=== PATIENT | female | born 1970 | race Asian ===

== ENCOUNTER 2024-11-28 19:28 | Inpatient (IN) | payer OTHER, SELFPAY ==
[2024-11-28 16:06] VITALS: BP 190/98
[2024-11-28 16:39] LABS: ALT (SGPT) 24 U/L (0-35); AST (SGOT) 25 U/L (14-36); Albumin 4.2 g/dl (3.5-5.0); Alkaline Phosphatase 100 U/L (38-126); Blood Urea Nitrogen 10 mg/dl (7-17); Calcium 8.9 mg/dl (8.4-10.2); Carbon Dioxide 24 mmol/L (22-30); Chloride 102 mmol/L (98-107); Glucose 122 mg/dl (70-99); Hematocrit 50.3 % (37.0-47.0); Hemoglobin 14.4 g/dL (12.0-16.0); Lipase 25 U/L (23-300); Mean Corp Hgb Conc. 28.6 g/dL (33.0-37.0); Mean Corpuscular Volume 72.3 fL (81.0-99.0); Platelet Count 345 10^3/uL (130-400); Potassium 4.8 mmol/L (3.5-5.1); Red Cell Dist. Width 18.0 % (11.5-14.5); Sodium 134 mmol/L (135-145); Total Protein 8.2 g/dl (6.3-8.2); eGFR > 60.00
[2024-11-28] MEDS: NSS 500 IV (17:20)
[2024-11-28] MEDS: ZOFRAN 4 MG IV (17:20)
[2024-11-28 18:27] LABS: Nucleated Red Blood Cells % 0 %
--- NOTE | 2024-11-28 18:35 | ED.GENMED ---
History of Present Illness
<Sharath Reed Jr., PA-C - Last Filed: 11/28/24 19:52>
General
Chief Complaint: Abdominal Symptoms
Source: patient
Exam Limitations: none
Time Seen by Provider: 11/28/24 16:46
Nursing documentation reviewed up to this point in time: agreed with
History of Present Illness
History of Present Illness:
53-year-old female past medical history of hypertension presenting to the emergency department today with concerns of bloating, abdominal discomfort nausea and vomiting starting yesterday after a meal. Denies fevers chest pain shortness of breath.
Denies urinary symptoms.
Review of Systems
<Sharath Reed Jr., PA-C - Last Filed: 11/28/24 19:52>
Review of Systems
Allergies reviewed?: Yes
All Other Systems: ROS reviewed and negative except as documented in HPI and ROS
Phy Exam
<Sharath Rede Jr., PA-C - Last Filed: 11/28/24 19:52>
Physical Exam
Physical Exam:
GENERAL: Alert , in no apparent distress
EYE: pupils equal and reactive
NECK: Supple, no significant adenopathy.
ENT: o/p clr, mmm.
CARDIAC: Regular rate and rhythm .
LUNGS: Clear breath sounds bilaterally, no acute respiratory distress, no wheezes/rales/rhonchi
ABDOMEN: Distended abdomen with vague discomfort diffusely
NEUROLOGICAL: Alert and oriented, no focal neuro deficits
SKIN: Warm and dry, skin intact.
MUSCULOSKELETAL: No edema, well perfused.
PSYCH: Normal and appropriate interaction.
Course
<Sharath Reed Jr., PA-C - Last Filed: 11/28/24 19:52>
Orders/Labs/Results
Orders:
Orders
11/28/24 16:13
Electrocardiogram (*1) Urgent
Reason for Study: Abdominal Pain
EKG- Treatment ONCE
11/28/24 16:20
CMP [Comprehensive Metabolic Panel] Urgent
Complete Blood Count/With Diff Urgent
Lipase Urgent
11/28/24 17:08
CT Abd/Pel (IV only)-DH only Urgent
Comment:
Reason For Exam: diffuse abd pain
Ondansetron Injectable [Zofran] 4 mg IV NOW STA
11/28/24 17:09
0.9% Sodium Chloride 500 ml [Nss] 500 ml IV BOLUS
11/28/24 18:57
Admit/Transfer Patient As Directed
Co-Sign Provider:
Level of Care: Inpatient admission
Assign to:: Medical/Surgical
Physician / Group: silvano
Diagnosis: SBO
Reason for Hospitalization: SBO
Expected length of stay greater than two midnights?: Yes
ELOS- Estimated Length of Stay in days: 2
I certify the patient meets the requirements for IP care: Yes
Code Status As Directed
Resuscitation Status: Full Code
PRN Pain Medication Management As Directed
May give lesser potent ordered pain med per pt: Yes
preference::
Protocol:: Medication orders for pain may be administered in a
manner that supports deferring to patient preference
when the pt is:
- Requesting an ordered lesser potent pain medication.
Least to most potent pain medications are defined
as: acetaminophen < NSAID < tramadol < opioids
(morphine, oxycodone, hydromorphone).
- Requesting a lesser dose of the same medication IF
ORDERED.
- Requesting a less intrusive route of administration
if both routes are prescribed by the provider (PO <
IV).
Abnormal Lab Results
11/28/24
16:20
WBC 17.6 H 10^3/uL
(4.8-10.8)
RBC 6.96 H 10^6/uL
(4.20-5.40)
Hct 50.3 H %
(37.0-47.0)
MCV 72.3 L fL
(81.0-99.0)
MCH 20.7 L pg
(27.0-31.0)
MCHC 28.6 L g/dL
(33.0-37.0)
RDW 18.0 H %
(11.5-14.5)
Abs Immat Gran (auto) 0.1 H 10^3/uL
(0-0.05)
Absolute Neuts (auto) 15.2 H 10^3/uL
(1.4-6.5)
Absolute Monos (auto) 0.7 H 10^3/uL
(0.1-0.6)
Immature Gran % 0.6 H %
(0-0.5)
Neutrophils % 86.5 H %
(42.2-75.2)
Lymphocytes % 8.3 L %
(20.5-51.1)
Sodium 134 L mmol/L
(135-145)
Glucose 122 H mg/dl
(70-99)
11/28/24 16:20
11/28/24 16:20
Vital Signs
Initial and Last Documented VS:
Initial Vital Signs
Temp Pulse Resp BP Pulse Ox
98.6 F 85 16 190/98 97
11/28/24 16:06 11/28/24 16:06 11/28/24 16:06 11/28/24 16:06 11/28/24 16:06
Last Documented Vital Signs
Temp Pulse Resp BP Pulse Ox
97.8 F 89 18 166/73 96
11/28/24 19:02 11/28/24 19:02 11/28/24 19:02 11/28/24 19:02 11/28/24 19:02
<Gladys Ramirez, DO - Last Filed: 11/28/24 19:37>
Orders/Labs/Results
Orders:
Orders
11/28/24 16:13
Electrocardiogram (*1) Urgent
Reason for Study: Abdominal Pain
EKG- Treatment ONCE
11/28/24 16:20
CMP [Comprehensive Metabolic Panel] Urgent
Complete Blood Count/With Diff Urgent
Lipase Urgent
11/28/24 17:08
CT Abd/Pel (IV only)-DH only Urgent
Comment:
Reason For Exam: diffuse abd pain
Ondansetron Injectable [Zofran] 4 mg IV NOW STA
11/28/24 17:09
0.9% Sodium Chloride 500 ml [Nss] 500 ml IV BOLUS
11/28/24 18:57
Admit/Transfer Patient As Directed
Co-Sign Provider:
Level of Care: Inpatient admission
Assign to:: Medical/Surgical
Physician / Group: silvano
Diagnosis: SBO
Reason for Hospitalization: SBO
Expected length of stay greater than two midnights?: Yes
ELOS- Estimated Length of Stay in days: 2
I certify the patient meets the requirements for IP care: Yes
Code Status As Directed
Resuscitation Status: Full Code
PRN Pain Medication Management As Directed
May give lesser potent ordered pain med per pt: Yes
preference::
Protocol:: Medication orders for pain may be administered in a
manner that supports deferring to patient preference
when the pt is:
- Requesting an ordered lesser potent pain medication.
Least to most potent pain medications are defined
as: acetaminophen < NSAID < tramadol < opioids
(morphine, oxycodone, hydromorphone).
- Requesting a lesser dose of the same medication IF
ORDERED.
- Requesting a less intrusive route of administration
if both routes are prescribed by the provider (PO <
IV).
Abnormal Lab Results
11/28/24
16:20
WBC 17.6 H 10^3/uL
(4.8-10.8)
RBC 6.96 H 10^6/uL
(4.20-5.40)
Hct 50.3 H %
(37.0-47.0)
MCV 72.3 L fL
(81.0-99.0)
MCH 20.7 L pg
(27.0-31.0)
MCHC 28.6 L g/dL
(33.0-37.0)
RDW 18.0 H %
(11.5-14.5)
Abs Immat Gran (auto) 0.1 H 10^3/uL
(0-0.05)
Absolute Neuts (auto) 15.2 H 10^3/uL
(1.4-6.5)
Absolute Monos (auto) 0.7 H 10^3/uL
(0.1-0.6)
Immature Gran % 0.6 H %
(0-0.5)
Neutrophils % 86.5 H %
(42.2-75.2)
Lymphocytes % 8.3 L %
(20.5-51.1)
Sodium 134 L mmol/L
(135-145)
Glucose 122 H mg/dl
(70-99)
11/28/24 16:20
11/28/24 16:20
Vital Signs
Initial and Last Documented VS:
Initial Vital Signs
Temp Pulse Resp BP Pulse Ox
98.6 F 85 16 190/98 97
11/28/24 16:06 11/28/24 16:06 11/28/24 16:06 11/28/24 16:06 11/28/24 16:06
Last Documented Vital Signs
Temp Pulse Resp BP Pulse Ox
97.8 F 89 18 166/73 96
11/28/24 19:02 11/28/24 19:02 11/28/24 19:02 11/28/24 19:02 11/28/24 19:02
<Sharath Reed Jr., PA-C - Last Filed: 11/28/24 19:52>
MDM/Problems Addressed
MDM/Problems Addressed:
53-year-old female presenting to the emergency department today with concerns of abdominal pain bloating nausea and vomiting starting yesterday after eating carrots. Here she does have vague discomfort throughout the abdomen and moderate
distention. Initial blood pressure elevated but improved without specific treatment. White count of 17.6 other labs are unremarkable. CT scan was done that showed a small bowel obstruction. Case was then admitted for surgery consultation.
<Sharath Reed Jr., PA-C - Last Filed: 11/28/24 19:52>
*Pulse Oximetry
SaO2: 97
Oxygen Mode of Delivery: Room air
Patient hypoxic: no (96)
*Critical Care Note
Total Time (30-74mins, 75-104mins- exclusive of procedures): Not Applicable
ED Attending Note
<Sharath Reed Jr., PA-C - Last Filed: 11/28/24 19:52>
-
Portions of this chart may have been created with voice recognition software.� Occasional wrong word or��sound alike� substitutions may have occurred due to the inherent limitations of voice recognition software.
<Gladys Ramirez DO - Last Filed: 11/28/24 19:37>
ED Attending Note
Patient seen and examined by attending physician: Yes
I performed the substantive portion of visit, reviewed & personally made and approve the management plan that is documented in note by myself or LIYAH.: Yes
I performed a history and physical exam of patient and discussed management with resident, I reviewed resident's note and agree with documented findings and plan of care.: Yes
ED Attending Note:
53-year-old female with prior history of small bowel obstruction as well as hysterectomy presenting for abdominal discomfort and vomiting. Notes that she ate a carrot yesterday that did not sit right with her. She has since had some tightness in
her abdomen. Notes history of small bowel obstruction in the past, nonsurgical. Last bowel movement was this afternoon. Denies fever, chest pain, difficulty breathing. Vitals significant for high blood pressure.
On exam, generalized discomfort to the abdomen without rebound or guarding. Patient seen and evaluated by physician operational assistant prior to my assessment with CT completed, demonstrating a small bowel obstruction. Patient aware of findings. General
surgery aware of findings. Pain currently controlled. Plan for admission for continued supportive therapy and surgical consultation
Discharge Plan
Departure
Patient Disposition: Admit
Date of Disposition: 11/28/24
Time of Disposition: 18:35
Admit to: Med/Surg
Admit to doctor: Silvano
Presentation/result/management discussed w/ accepting MD/DO: Hospitalist
Patient with high blood pressure during this ER visit?: No
Condition: Good
Covid-19: Not Applicable
Discharge Problem:
SBO (small bowel obstruction)
Interventions
Interventions:
*Risk Screen - Suicide Last Done: 11/28/24 16:06
*Neglect/Abuse Screening Last Done: 11/28/24 16:06
HD-Lzcmte-Ghmocdyrim Assessment Last Done: 11/28/24 16:54
--- NOTE | 2024-11-28 18:58 | HPS.HSE ---
Family Physician
-
Family Physician: * NONE
Chief Complaint
-
abdominal pain
History of Present Illness
53-year-old female past medical history of hypertension, ovarian abscess status post total abdominal hysterectomy and bilateral salpingo-oophorectomy, prior appendectomy presenting with diffuse abdominal pain and bloating and distention since
yesterday. She did have a bowel movement today. No fevers or chills. Nausea without vomiting.
She had a small bowel obstruction 5 years ago treated nonoperatively.
She denies smoking or alcohol drugs.
Medical History
Past Medical History
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
Past Surgical History: Reports Other (ovarian abscess status post total abdominal hysterectomy and bilateral salpingo-oophorectomy, prior appendectomy )
Social History
Tobacco: Non-smoker
Alcohol: None
Drug: None
Family History
Family History: Not pertinent
Allergies / Home Medications
Allergies reflects when Allergies were last updated in [facility].
Home Medications with original date entered in [facility]
Allergy/Medication List:
Allergies
Allergy/AdvReac Type Severity Reaction Status Date / Time
amoxicillin (From Augmentin) Allergy Unknown Verified 11/28/24 16:06
clavulanic acid (From Allergy Unknown Verified 11/28/24 16:06
Augmentin)
clindamycin Allergy Unknown Verified 11/28/24 16:06
Review of Systems
-
History Source: Patient
A 12 point ROS was completed and negative except as noted: Yes
Constitutional: Reports No Symptoms
EENT: Reports No Symptoms
Respiratory: Reports No Symptoms
Cardiac: Reports No Symptoms
Abdomen/GI: Reports See HPI
: Reports No Symptoms
Musculoskeletal: Reports No Symptoms
Skin: Reports No Symptoms
Neurological: Reports No Symptoms
Endocrine: Reports No Symptoms
Hematologic/Lymphatic: Reports No Symptoms
Psych: Reports No Symptoms
Physical Exam
Vital Signs
Vital Signs
Temp Pulse Resp BP Pulse Ox
98.6 F 85 16 190/98 97
11/28/24 16:06 11/28/24 16:06 11/28/24 16:06 11/28/24 16:06 11/28/24 18:36
Physical Exam
General: Well Developed, Well Nourished and No Apparent Distress
HEENT: NormoCephalic, Moist mucous membranes and Atraumatic
Respiratory: Clear
Cardiac: S1/S2 and Regular Rhythm; No Murmur or Rub
GI: Soft, Non Distended, Normal Bowel Sounds and Tender (periumbilical ); No Organomegaly
Rectal: Deferred by Provider
Musculoskeletal: No Clubbing, No Cyanosis and No Edema
Skin: No Rash
Neuro: Nonfocal/grossly intact
Laboratory Results
-
11/28/24 16:20
11/28/24 16:20
Laboratory Results
Total Bilirubin 0.8 mg/dl (0.2-1.3) 11/28/24 16:20
AST 25 U/L (14-36) 11/28/24 16:20
ALT 24 U/L (0-35) 11/28/24 16:20
Alkaline Phosphatase 100 U/L (38-126) 11/28/24 16:20
Lipase 25 U/L (23-300) 11/28/24 16:20
Data Reviewed
-
Lab Data: Labs Reviewed by me
Old Records: Reviewed
Impression/Plan
-
IMPRESSION:
PLAN:
# Small bowel obstruction secondary to adhesion
-Leukocytosis
-CT abdomen pelvis shows small bowel obstruction with moderate distention of the jejunal small bowel loops and collapsed ileal small bowel loops with transition point in the center of the abdomen, obstructive adhesive band is probably etiology, mild
mesenteric edema throughout the left side of the mid abdomen
- N.p.o.
- IV fluids
- General Surgery consulted
- Dilaudid/Zofran
History of ovarian abscess status post total abdominal hysterectomy/bilateral salpingo-oophorectomy
History of appendectomy
Obesity
Arthritis
Full code
DVT prophylaxis�heparin
N.p.o.
[2024-11-28 19:02] VITALS: BP 166/73; BMI 64.5
[2024-11-28 21:48] VITALS: BP 152/70
[2024-11-28 23:02] VITALS: BP 134/79; BMI 63.3
[2024-11-28] MEDS: HEPARIN 5000 UNITS SC (23:43)
[2024-11-28] MEDS: NSS 1000 IV (23:44)
--- NOTE | 2024-11-29 01:52 | PTCARENOTE ---
Recieved pt from ER AT 2245 with diagnosis of SBO, alert, ox4, steady gait, no c/o pain made,VS stable, plan of care discussed with pt.
--- NOTE | 2024-11-29 07:11 | W.PN.HOSP.TC ---
Addendum entered and electronically signed by Roopa Watson MD 11/29/24 15:28:
Seen and examined the patient. Agree with the plan set forth by the resident. See changes in my documentation
53-year-old with abdominal pain
11/28/2024-CT abdomen and pelvis-small bowel obstruction with moderate distention of the jejunal small bowel loops and collapsed ileal small bowel loops with a transition point in the center of the abdomen. An obstructing adhesive band is probably
etiology for the SBO. Mild mesenteric edema throughout the left side of the mid abdomen. Severe diffuse hepatic steatosis. Previous ELLIS-BSO. Morbid obesity. Moderate DDD and facet arthrosis in the L-spine.
CVS: S1-S2 normal
Chest: CTA B/L
Abdomen: Mild discomfort with palpation. No bowel sounds appreciated
Extremities: No edema
# Small bowel obstruction
Likely secondary to adhesions from previous surgery
Keep n.p.o. with IV fluids
Discussed about getting an NG tube if pain is getting worse or if she has vomiting
Pain control
Surgery consulted
SBFT ordered.
# Mild hyponatremia better
# Hypertension-on losartan 100 mg daily and amlodipine 5 mg daily as outpatient. Hold while NPO. BP stable.
# History of ovarian abscess status post total abdominal hysterectomy and BSO in the past
# Hepatic steatosis
# History of appendectomy
# History of diverticulosis
# Obesity with a BMI of 63
# Arthritis/moderate discogenic DDD and facet joint arthrosis in the lumbar spine
# DVT prophylaxis-Lovenox
# Full code
Part of this note was created using voice recognition system. Occasional wrong word or��sound alike� substitutions may have inadvertently occurred due to the inherent limitations of voice recognition software. If noted kindly bring it to my
attention for correction.
Original Note:
Today's Communication/Plan
-
N.p.o.
IV fluids
Analgesics, antiemetics
Assessment / Plan
Assessment / Plan
53-year-old female past medical history of hypertension, ovarian abscess status post total abdominal hysterectomy and bilateral salpingo-oophorectomy, prior appendectomy presenting with diffuse abdominal pain and bloating and distention since
yesterday. CT abdomen pelvis, and x-ray showed dilated loops concerning for SBO.
# Small bowel obstruction
Likely secondary to adhesion history of abdominal surgery
SBO 5 years ago treated nonoperatively
CT abdomen pelvis shows small bowel obstruction with moderate distention of the jejunal small bowel loops obstructive adhesive band is probably etiology, mild mesenteric edema throughout the left side of the mid abdomen,
abdominal XRay Mild dilated proximal to mid small bowel, predominantly jejunum is grossly similar to findings seen on CT of preceding day, direct comparison of different imaging modalities somewhat limited.
- N.p.o.
- IV fluids
- General Surgery consulted
appreciate recs
no surgical intervention immediately
consider NGT
Minimize narcotic use
- Zofran
- As needed Toradol
# Hypertension
Resume home meds once not n.p.o.
-Amlodipine 5 mg
-Losartan 100 mg
Full code
DVT prophylaxis�heparin
Anticipated Discharge: Within 24 hours
Subjective/Interval History
-
Patient seen at bedside this morning. Reports pain started about 1-1/2 days ago had bowel movement after pain started. Pain is in the epigastric area last SBO pain was more in the lower abdomen. No history of ulcer disease or chronic NSAID use,
did report NSAID use couple days prior to presentation. Was also on a conference trip where she ate food that was out of the ordinary for her. However reports no diarrhea. Nausea is much improved this morning pain improved from 12 out of 10 to
2-3 out of 10 pain. Date of Service: November 29, 2024
Objective Data
-
Labs:
Laboratory Results
11/29/24
06:00
WBC Pending
Hgb Pending
Hct Pending
Plt Count Pending
Sodium Pending
Potassium Pending
Chloride Pending
Carbon Dioxide Pending
BUN Pending
Creatinine Pending
Glucose Pending
Calcium Pending
Total Bilirubin Pending
AST Pending
ALT Pending
Alkaline Phosphatase Pending
Vital Signs:
Vital Signs
Temp Pulse Resp BP Pulse Ox
99.1 F 93 18 134/79 94
11/28/24 23:02 11/28/24 23:02 11/28/24 23:02 11/28/24 23:02 11/29/24 01:47
I&O
11/28/24 11/29/24 11/30/24
06:59 06:59 06:59
Intake Total 1550 / 1550
Balance 1550 / 1550
Review of Systems
-
History Source: Patient
Constitutional: Reports No Symptoms; Denies Fever
EENT: Reports No Symptoms Reported; Denies Sore Throat or Runny Nose
Respiratory: Reports No Symptoms; Denies Cough or Trouble Breathing
Cardiac: Reports No Symptoms; Denies Chest Pain or Palpitations
Abdomen/GI: Reports Abdominal Pain (03/21); Denies Nausea, Vomiting, Diarrhea or Constipated
Genitourinary: Reports No Symptoms; Denies Dysuria
Musculoskeletal: Reports No Symptoms
Neuro: Reports No Symptoms; Denies Dizzy or Headache
Physical Exam
-
General: Well Developed, Well Nourished, No Apparent Distress, Comfortable and Morbidly Obese
HEENT: Normocephalic and Atraumatic
Respiratory: Clear to Auscultation and Decreased Breath Sounds; Negative Crackles
Cardiac: Regular Rhythm, S1/S2 and Tachycardic; Negative Murmur
GI: Soft, Nondistended, Normal Bowel Sounds and Tender (Tender to palpation in epigastric and right upper and lower lower quadrant areas)
Musculoskeletal: No Clubbing and No Edema
Skin: Warm and Dry
Neuro: Awake and Alert
Psych: Calm
[2024-11-29 07:23] VITALS: BP 142/82
[2024-11-29 08:10] LABS: ALT (SGPT) 20 U/L (0-35); AST (SGOT) 19 U/L (14-36); Albumin 3.5 g/dl (3.5-5.0); Alkaline Phosphatase 80 U/L (38-126); Blood Urea Nitrogen 12 mg/dl (7-17); Calcium 8.0 mg/dl (8.4-10.2); Carbon Dioxide 31 mmol/L (22-30); Chloride 105 mmol/L (98-107); Estimated Creatinine Clearance > 125 ml/min; Glucose 108 mg/dl (70-99); Potassium 4.6 mmol/L (3.5-5.1); Sodium 139 mmol/L (135-145); Total Protein 6.8 g/dl (6.3-8.2); eGFR > 60.00
[2024-11-29 08:19] LABS: Hematocrit 45.9 % (37.0-47.0); Hemoglobin 13.1 g/dL (12.0-16.0); Mean Corp Hgb Conc. 28.5 g/dL (33.0-37.0); Mean Corpuscular Volume 72.9 fL (81.0-99.0); Nucleated Red Blood Cells % 0 %; Platelet Count 305 10^3/uL (130-400); Red Cell Dist. Width 17.6 % (11.5-14.5)
[2024-11-29 08:39] LABS: Normal RBC Morphology No; Polychromasia Slight; Target Cells Slight
[2024-11-29] MEDS: HEPARIN SC (08:51)
[2024-11-29] MEDS: LOVENOX 40 MG SC ×2 (08:52→21:07)
[2024-11-29] MEDS: NSS 1000 IV ×2 (08:52→22:18)
--- NOTE | 2024-11-29 11:05 | CON.GS ---
Medical History
-
Chief Complaint: Nausea, abdominal pain
History of Present Illness:
Patient is a 53 yo F with a PMH of morbid obesity, HTN, DINA, s/p open appendectomy, s/p open hysterectomy and bilateral salpingo-oophorectomy. Ms. De La Paz presents with 48 hours of epigastric abdominal discomfort and nausea. No episodes of vomiting.
Last passed flatus this a.m. Last bowel movement was yesterday. She reports a prior history of lower abdominal discomfort and a bowel obstruction several years ago which was managed nonoperatively at [facility]. All of her prior surgical
procedures have been at [facility]. Currently she states that her abdominal symptoms have improved, but not completely resolved.
Past Medical History
Past Medical History: HTN and Other (Obesity, DINA)
Past Surgical History: Appendectomy and Gynecological (Hysterectomy and BLSO)
Social History
Tobacco: Non-Smoker
Alcohol: None
Drug: None
Family History
Family History: Reviewed & Not Pertinent
Allergies / Home Medications
Allergy/AdvReac Type Severity Reaction Status Date / Time
amoxicillin (From Augmentin) Allergy Unknown Verified 11/28/24 16:06
clavulanic acid (From Allergy Unknown Verified 11/28/24 16:06
Augmentin)
clindamycin Allergy Unknown Verified 11/28/24 16:06
�Medication �Instructions �Recorded �Confirmed �Type
amlodipine 5 mg tablet 5 mg PO DAILY Blood Pressure 11/29/24 11/29/24 History
losartan 100 mg tablet 100 mg PO DAILY Blood Pressure 11/29/24 11/29/24 History
Review of Systems
-
A 10 point review of systems was completed, and was negative except as per HPI.
Physical Exam
Vital Signs
Temp Pulse Resp BP Pulse Ox
98.4 F 89 18 142/82 92
11/29/24 07:23 11/29/24 07:23 11/29/24 07:23 11/29/24 07:23 11/29/24 07:23
11/28/24 11/29/24 11/30/24
06:59 06:59 06:59
Actual Weight 162.159 kg
Body Mass Index (BMI) 63.3
Lab Results
11/29/24 07:30
11/29/24 07:30
WBC 15.8 10^3/uL (4.8-10.8) H 11/29/24 07:30
Hgb 13.1 g/dL (12.0-16.0) 11/29/24 07:30
Hct 45.9 % (37.0-47.0) 11/29/24 07:30
Plt Count 305 10^3/uL (130-400) 11/29/24 07:30
Abs Immat Gran (auto) 0.1 10^3/uL (0-0.05) H 11/29/24 07:30
Neutrophils % 85.7 % (42.2-75.2) H 11/29/24 07:30
Physical Exam
General: Well Developed, Well Nourished and No Apparent Distress
HEENT: Normocephalic and Anicteric
Respiratory: Non Labored Respirations
Cardiac: Regular Rhythm
GI: Soft, Tender (Mild epigastric), Obese and Other (Nonperitoneal (no rebound or guarding), exam limited by severe morbid obesity)
Musculoskeletal: Edema
Skin: Warm and Dry
Neuro: Nonfocal/Grossly Intact
Data Reviewed
-
CT Scan: Image Personally Visualized and interpreted and Report Reviewed by me
Labs: Labs Reviewed by me
Assessment / Plan
-
Patient is a 53 yo F p/w adhesive SBO
The natural history and pathophysiology of small bowel obstructions was discussed. Likely adhesive secondary to her prior operative procedures. No evidence of pneumatosis or free air. Some signs of early clinical resolution with passage of
flatus. Role of surgical intervention was discussed. Increased risk for operative complications related to her severe morbid obesity. Recommend continued medical management. Will obtain a SBFT today for diagnostic and therapeutic purposes. All
questions answered.
-- No plans for surgical intervention at this time
-- SBFT
-- NPO, IVF, NGT if worsening pain or nausea
-- Trend labs, correct lytes, minimize narcotics as able
--- NOTE | 2024-11-29 11:18 | CM ---
CM following re: discharge planning.
Reviewed pt's chart, met with pt.
Pt is a 53 year old female, admitted with primary dx of SBO.
Pt reports she was born and grew up in [place], emigrated to [place] at the age of 16 for study. Pt reports her mother and father live in [place] and she visited them often. Pt reports she has no immediate family in the [place], has supportive friends she
can rely on. Pt described herself as independent in all erica [employer], drives, works.
PCP: Stan Cruz
Pharmacy: [facility]
D/C plan: home with anticipated no needs. Pt stated her friend will transport home or she will take an Uber
CM will follow with discharge plan updates as hospitalization progresses
[2024-11-29 11:38] LABS: Vitamin D, 25-OH*** 22.8 ng/mL (30-80)
[2024-11-29 15:22] VITALS: BP 143/71
[2024-11-29 23:09] VITALS: BP 121/61
--- NOTE | 2024-11-30 06:30 | DOWNTIME ---
There was a [employer] Downtime on 11/30/2024 from 0100 to 11/30/2024 at 0215. Downtime documentation of patient's care, including medication administrations, has been reconciled in the electronic record per guidelines. Refer to the
patient's paper chart under the miscellaneous tab to see printed paper medication records and downtime forms.
[2024-11-30 07:31] VITALS: BP 142/75
[2024-11-30] MEDS: NSS 1000 IV (08:13)
[2024-11-30] MEDS: LOVENOX 40 MG SC ×2 (08:13→20:50)
--- NOTE | 2024-11-30 08:18 | W.PN.HOSP.TC ---
Addendum entered and electronically signed by Roopa Watson MD 11/30/24 16:43:
Seen and examined the patient with the resident. Seen earlier. Late documentation. Patient was doing much better had 2 bowel movements
Abdomen is soft and nontender, bowel sounds are appreciated
Patient was started on clear liquids
If tolerating will advance to full liquid diet for dinner
Low residue diet tomorrow
Discussed with nursing
Discussed with surgeon
Original Note:
Today's Communication/Plan
-
Clear liquid diet
Advance diet as tolerated
Restart anti-hypertensive medications
Assessment / Plan
Assessment / Plan
53-year-old female past medical history of hypertension, ovarian abscess status post total abdominal hysterectomy and bilateral salpingo-oophorectomy, prior appendectomy presenting with diffuse abdominal pain and bloating and distention since 11/27.
In the ED CT abdomen pelvis, and x-ray showed dilated loops concerning for SBO. General surgery was consulted who started her on conservative management with IV fluids antiemetics and analgesics. In the hospital and abdominal x-ray showed dilated
small bowels similar to the CT findings. A small bowel follow-through study showed a transit time of 1.5 hours which is within normal limits and findings consistent with resolving small bowel obstruction. Pain decreased over time and on 11/29
patient had a bowel movement and she was started on clear liquid diet on 11/30.
# Small bowel obstruction
# History of ovarian abscess status post total abdominal hysterectomy and BSO in the past
# History of appendectomy
Likely secondary to adhesion history of abdominal surgery
SBO 5 years ago treated nonoperatively
CT abdomen pelvis shows small bowel obstruction with moderate distention of the jejunal small bowel loops obstructive adhesive band is probably etiology, mild mesenteric edema throughout the left side of the mid abdomen,
abdominal XRay Mild dilated proximal to mid small bowel, predominantly jejunum is grossly similar to findings seen on CT of preceding day, direct comparison of different imaging modalities somewhat limited.
- General Surgery consulted
appreciate recs
no surgical intervention immediately
SBO self resolving
Minimize narcotic use
Clear liquid diet
Advance diet as tolerated
- Zofran
- As needed Toradol
- Pantoprazole for GERD
# Hypertension
Resume home meds
-Amlodipine 5 mg
-Losartan 100 mg
CODE STATUS: Full code
DVT prophylaxis: Lovenox
Anticipated Discharge: Within 24 hours
Subjective/Interval History
-
Patient was seen at bedside. Patient passed brown formed stool with no specks of blood yesterday and has been passing gas this morning. She is still endorsing 3/10 pain in the abdomen but reports no nausea vomiting fevers chills shortness of
breath chest pain. Date of Service: November 30, 2024
Objective Data
-
Labs:
Laboratory Results
11/30/24
07:10
WBC Pending
Hgb Pending
Hct Pending
Plt Count Pending
Sodium Pending
Potassium Pending
Chloride Pending
Carbon Dioxide Pending
BUN Pending
Creatinine Pending
Glucose Pending
Calcium Pending
Vital Signs:
Vital Signs
Temp Pulse Resp BP Pulse Ox
98.0 F 84 16 142/75 91
11/30/24 07:31 11/30/24 07:31 11/30/24 07:31 11/30/24 07:31 11/30/24 07:31
I&O
11/29/24 11/30/24 12/01/24
06:59 06:59 06:59
Intake Total 1550 / 1550
Balance 1550 / 1550
Review of Systems
-
History Source: Patient
Constitutional: Reports No Symptoms; Denies Fever
EENT: Reports No Symptoms Reported; Denies Sore Throat or Runny Nose
Respiratory: Reports No Symptoms; Denies Cough or Trouble Breathing
Cardiac: Reports No Symptoms; Denies Chest Pain or Palpitations
Abdomen/GI: Reports Abdominal Pain; Denies Nausea, Vomiting, Diarrhea, Constipated or Bloody Stools
Genitourinary: Denies Dysuria
Neuro: Denies Dizzy or Headache
Physical Exam
-
General: Well Developed, Well Nourished, No Apparent Distress, Comfortable and Morbidly Obese
HEENT: Normocephalic and Atraumatic
Respiratory: Clear to Auscultation and Non Labored Respirations; Negative Wheezes or Crackles
Cardiac: Regular Rhythm and S1/S2; Negative Murmur
GI: Soft, Normal Bowel Sounds and Tender (mild LLQ LUQ epigastric tenderness )
Musculoskeletal: No Clubbing and No Edema
Skin: Warm and Dry
Neuro: Awake and Alert
[2024-11-30 08:27] LABS: Hematocrit 42.7 % (37.0-47.0); Hemoglobin 12.1 g/dL (12.0-16.0); Mean Corp Hgb Conc. 28.3 g/dL (33.0-37.0); Mean Corpuscular Volume 74.0 fL (81.0-99.0); Platelet Count 303 10^3/uL (130-400); Red Cell Dist. Width 17.0 % (11.5-14.5)
[2024-11-30 09:24] LABS: Blood Urea Nitrogen 9 mg/dl (7-17); Calcium 7.6 mg/dl (8.4-10.2); Carbon Dioxide 25 mmol/L (22-30); Chloride 108 mmol/L (98-107); Estimated Creatinine Clearance > 125 ml/min; Glucose 83 mg/dl (70-99); Potassium 4.1 mmol/L (3.5-5.1); Sodium 139 mmol/L (135-145); eGFR > 60.00
--- NOTE | 2024-11-30 10:44 | W.PN.GS2 ---
Today's Communication / Plan
-
CLD
Assessment / Plan
-
53F with resolving SBO
AFVSS, nausea resolved, pain improved, passing flatus
Leukocytosis resolved
SBFT with 90 min transit to colon (WNL)
Plan:
Trial CLD
ADAT to LRD starting tomorrow if no issues
Dietary education provided
All other care as per primary team
Subjective Data
-
Date of Service: November 30, 2024
AFVSS, pain improved, nausea resolved, passing flatus
Objective Data
-
Intake and Output
11/29/24 11/30/24 12/01/24
06:59 06:59 06:59
Intake Total 1550 / 1550
Balance 1550 / 1550
Intake:
IV fluids (Total) 1550 / 1550
Other:
Number of approximated MODERATE 1 2
amounts of urine
Number of approximated LARGE 1
amounts of urine
Vital Signs
Temp Pulse Resp BP Pulse Ox
98.0 F 84 16 142/75 91
11/30/24 07:31 11/30/24 07:31 11/30/24 07:31 11/30/24 07:31 11/30/24 07:31
Lab Results
11/30/24 07:10
11/30/24 07:10
Calcium 7.6 mg/dl (8.4-10.2) L 11/30/24 07:10
Total Bilirubin 0.6 mg/dl (0.2-1.3) 11/29/24 07:30
AST 19 U/L (14-36) 11/29/24 07:30
ALT 20 U/L (0-35) 11/29/24 07:30
Alkaline Phosphatase 80 U/L (38-126) 11/29/24 07:30
Total Protein 6.8 g/dl (6.3-8.2) 11/29/24 07:30
Albumin 3.5 g/dl (3.5-5.0) 11/29/24 07:30
Physical Exam
-
Gen: NAD
Abd: obese, soft, mild ttp to BLQ
Patient has a ballesteros catheter: No
Patient has a central line: No
[2024-11-30] MEDS: PROTONIX 40 MG PO (11:26)
[2024-11-30] MEDS: COZAAR 100 MG PO (11:28)
[2024-11-30] MEDS: NORVASC 5 MG PO (11:28)
[2024-11-30 11:30] VITALS: BP 155/77
--- NOTE | 2024-11-30 12:30 | CM ---
CM following re: discharge planning.
Reviewed pt's chart, met with pt.
Per Surgery, SBO resolving, continue supportive care
Pt reports she was born and grew up in [place], emigrated to [place] [place] at the age of 16 for study. Pt reports her mother and father live in [place] and she visited them often. Pt reports she has no immediate family in the [place] [place], has supportive friends she
can rely on. 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
D/C plan: home with anticipated no needs. Pt stated her friend will transport home or she will take an Uber
CM will follow with discharge plan updates as hospitalization progresses
--- NOTE | 2024-11-30 14:06 | PN.CDI ---
CDI
- -
CDI:
Physician Documentation Request
Admit Date: 11/28/24 19:28
Dear Doctor Shirley/ Resident,
Please review the following and provide your response in the progress notes.
Clinical Indicators:
Pt admitted with SBO 2/2 adhesions
Progress note 11/30, ' In the ED CT abdomen pelvis, and x-ray showed dilated loops concerning for SBO. General surgery was consulted who started her on conservative management with IV fluids antiemetics and analgesics. In the hospital and
abdominal x-ray showed dilated small bowels similar to the CT findings. A small bowel follow-through study showed a transit time of 1.5 hours which is within normal limits and findings consistent with resolving small bowel obstruction....'
Please provide the suspected extent of the documented SBO :
Partial
Complete
Other ( please specify)
Use of terms such as suspected, likely, concern for, or probable (associated with a specific diagnosis that is being evaluated, monitored, or treated as if it exists) are acceptable and can be coded in the inpatient setting, when documented at the
time of discharge.
Thank you,
Daniella Watson RN
CDI Specialist
[employer]
Please use your independent medical judgment in providing your response.
[2024-11-30 15:35] VITALS: BP 157/89
[2024-11-30 23:22] VITALS: BP 143/65
[2024-12-01 07:14] VITALS: BP 165/94
[2024-12-01 07:21] LABS: Hematocrit 42.9 % (37.0-47.0); Hemoglobin 12.6 g/dL (12.0-16.0); Mean Corp Hgb Conc. 29.4 g/dL (33.0-37.0); Mean Corpuscular Volume 72.0 fL (81.0-99.0); Platelet Count 297 10^3/uL (130-400); Red Cell Dist. Width 16.2 % (11.5-14.5)
[2024-12-01 07:42] LABS: Blood Urea Nitrogen 5 mg/dl (7-17); Calcium 8.1 mg/dl (8.4-10.2); Carbon Dioxide 28 mmol/L (22-30); Chloride 107 mmol/L (98-107); Estimated Creatinine Clearance > 125 ml/min; Glucose 79 mg/dl (70-99); Potassium 3.9 mmol/L (3.5-5.1); Sodium 138 mmol/L (135-145); eGFR > 60.00
--- NOTE | 2024-12-01 09:27 | W.PN.GS2 ---
Addendum entered and electronically signed by Ignacio Santiago MD 12/01/24 16:18:
Patient seen and examined this a.m. with surgical ENDOSCOPY NURSE. This is a delayed addendum.
States that she still has some abdominal tenderness/soreness and feels bloated. She is passing flatus and had bowel movements yesterday. None this a.m. Or overnight.
Advises that her appetite is still reduced and not requesting food yet
AFVSS
NAD AAO x 3
ABD: Soft, obese, mild generalized tenderness without guarding or rebound
A/P: 53-year-old female with resolving partial small bowel obstruction (small bowel follow-through confirms transit to colon and subsequent multiple loose bowel movements.)
Full liquids and if tolerates well can advance
Patient requesting dietary consultation
Original Note:
Today's Communication / Plan
-
Full liquids
Assessment / Plan
-
53F with resolving SBO
AFVSS, nausea resolved, pain improved, passing flatus with BM yesterday
Leukocytosis resolved
11/29 SBFT with 90 min transit to colon (WNL)
Plan:
Advance to FLD
Dietary education provided, requesting to speak with senior data quality analyst
All other care as per primary team
Subjective Data
-
Date of Service: December 01, 2024
Pt seen and examined at bedside with Dr. Santiago. Denies n/v. Passing some flatus. Passed a BM yesterday. Still a bit sore and feels a bit bloated.
Objective Data
-
Intake and Output
11/30/24 12/01/24 12/02/24
06:59 06:59 06:59
Intake Total 1600 / 1600
Balance 1600 / 1600
Intake:
Oral fluids 600 / 600
IV fluids (Total) 1000 / 1000
Other:
Number of approximated MODERATE 2 4
amounts of urine
Number of approximated LARGE 1
amounts of urine
Vital Signs
Temp Pulse Resp BP Pulse Ox
97.5 F 78 18 165/94 93
12/01/24 07:14 12/01/24 07:14 12/01/24 07:14 12/01/24 07:14 12/01/24 07:14
Lab Results
12/01/24 06:25
12/01/24 06:25
Calcium 8.1 mg/dl (8.4-10.2) L 12/01/24 06:25
Total Bilirubin 0.6 mg/dl (0.2-1.3) 11/29/24 07:30
AST 19 U/L (14-36) 11/29/24 07:30
ALT 20 U/L (0-35) 11/29/24 07:30
Alkaline Phosphatase 80 U/L (38-126) 11/29/24 07:30
Total Protein 6.8 g/dl (6.3-8.2) 11/29/24 07:30
Albumin 3.5 g/dl (3.5-5.0) 11/29/24 07:30
Physical Exam
-
Gen: NAD
Abd: obese, soft, mild ttp generalized
Patient has a ballesteros catheter: No
Patient has a central line: No
--- NOTE | 2024-12-01 09:27 | W.PN.HOSP.TC ---
Addendum entered and electronically signed by Roopa Watson MD 12/01/24 14:16:
Seen and examined the patient earlier today. Agree with the plan formulated by the resident
Patient ambulating, pain much better
Tolerating clear liquid diet was advanced to full liquid for breakfast and for low residue
Dietery eval
If tolerating? Discharge
Original Note:
Today's Communication/Plan
-
Diet advanced to full liquid
Seed Laboratory Technician consult
Letter for delay of travel
Assessment / Plan
Assessment / Plan
53-year-old female past medical history of hypertension, ovarian abscess status post total abdominal hysterectomy and bilateral salpingo-oophorectomy, prior appendectomy presenting with diffuse abdominal pain and bloating and distention since 11/27.
In the ED CT abdomen pelvis, and x-ray showed dilated loops concerning for SBO. General surgery was consulted who started her on conservative management with IV fluids antiemetics and analgesics. In the hospital and abdominal x-ray showed dilated
small bowels similar to the CT findings. A small bowel follow-through study showed a transit time of 1.5 hours which is within normal limits and findings consistent with resolving small bowel obstruction. Pain decreased over time and on 11/29
patient had a bowel movement and she was started on clear liquid diet on 11/30. Patient had another bowel movement on 11/30. On 12/01 patient was advanced to full liquid and is tolerating it well.
# Partial small bowel obstruction
# History of ovarian abscess status post total abdominal hysterectomy and BSO in the past
# History of appendectomy
Likely secondary to adhesion history of abdominal surgery
Patient still passing gas at presentation
SBO 5 years ago treated nonoperatively
CT abdomen pelvis shows small bowel obstruction with moderate distention of the jejunal small bowel loops obstructive adhesive band is probably etiology, mild mesenteric edema throughout the left side of the mid abdomen,
abdominal XRay Mild dilated proximal to mid small bowel, predominantly jejunum is grossly similar to findings seen on CT of preceding day, direct comparison of different imaging modalities somewhat limited.
Letter for delay of travel
- General Surgery consulted
appreciate recs
no surgical intervention immediately
SBO self resolving
Minimize narcotic use
Full liquid diet
Advance diet as tolerated
- Zofran
- As needed Toradol
- Pantoprazole for GERD
- Seed Laboratory Technician consult
# Hypertension
Resume home meds
-Amlodipine 5 mg
-Losartan 100 mg
CODE STATUS: Full code
DVT prophylaxis: Lovenox
Anticipated Discharge: Within 24 hours
Subjective/Interval History
-
Patient was seen at bedside and reports doing well. She had another bowel movement yesterday and tolerated clears very well. She reports no nausea fevers chills shortness of breath or chest pain. She is worried about recurrence of SBO and wonders
if she should delay her trip and could get a doctor's note for her ticket. She is also worried about what to eat to prevent this in the future. Talked to patient about adhesions and how SBO occurs. Date of Service: December 01, 2024
Objective Data
-
Labs:
Laboratory Results
12/01/24
06:25
WBC 10.5
Hgb 12.6
Hct 42.9
Plt Count 297
Sodium 138
Potassium 3.9
Chloride 107
Carbon Dioxide 28
BUN 5 L
Creatinine 0.5 L
Glucose 79
Calcium 8.1 L
Vital Signs:
Vital Signs
Temp Pulse Resp BP Pulse Ox
97.5 F 78 18 165/94 93
12/01/24 07:14 12/01/24 07:14 12/01/24 07:14 12/01/24 07:14 12/01/24 07:14
I&O
11/30/24 12/01/24 12/02/24
06:59 06:59 06:59
Intake Total 1600 / 1600
Balance 1600 / 1600
Review of Systems
-
History Source: Patient
Constitutional: Reports No Symptoms; Denies Fever
EENT: Denies Sore Throat or Runny Nose
Respiratory: Denies Cough or Trouble Breathing
Cardiac: Denies Chest Pain or Palpitations
Abdomen/GI: Reports Abdominal Pain; Denies Nausea, Vomiting, Diarrhea, Constipated or Bloody Stools
Genitourinary: Reports No Symptoms; Denies Dysuria
Musculoskeletal: Reports No Symptoms
Neuro: Denies Dizzy or Headache
Physical Exam
-
General: Well Developed, Well Nourished, No Apparent Distress, Comfortable and Morbidly Obese
HEENT: Normocephalic and Atraumatic
Respiratory: Clear to Auscultation; Negative Wheezes or Crackles
Cardiac: Regular Rhythm and S1/S2; Negative Murmur
GI: Soft, Nontender and Nondistended
Musculoskeletal: No Clubbing and No Edema
Skin: Warm and Dry; Negative Rash
Neuro: Awake, Alert and Oriented
[2024-12-01] MEDS: LOVENOX 40 MG SC ×2 (09:29→21:51)
[2024-12-01] MEDS: NORVASC 5 MG PO (09:30)
[2024-12-01] MEDS: COZAAR 100 MG PO (09:30)
[2024-12-01 15:22] VITALS: BP 157/79
[2024-12-01 23:08] VITALS: BP 143/54
[2024-12-02 06:00] VITALS: BMI 61.5
[2024-12-02 06:56] LABS: Blood Urea Nitrogen 7 mg/dl (7-17); Calcium 9.1 mg/dl (8.4-10.2); Carbon Dioxide 29 mmol/L (22-30); Chloride 104 mmol/L (98-107); Estimated Creatinine Clearance > 125 ml/min; Glucose 92 mg/dl (70-99); Potassium 4.1 mmol/L (3.5-5.1); Sodium 143 mmol/L (135-145); eGFR > 60.00
[2024-12-02 07:15] VITALS: BP 176/94
[2024-12-02 07:51] LABS: Hematocrit 50.0 % (37.0-47.0); Hemoglobin 14.6 g/dL (12.0-16.0); Mean Corp Hgb Conc. 29.2 g/dL (33.0-37.0); Mean Corpuscular Volume 71.5 fL (81.0-99.0); Platelet Count 376 10^3/uL (130-400); Red Cell Dist. Width 18.0 % (11.5-14.5)
[2024-12-02] MEDS: COZAAR 100 MG PO (08:26)
[2024-12-02] MEDS: NORVASC 5 MG PO ×2 (08:26→11:22)
[2024-12-02] MEDS: LOVENOX SC (08:32)
--- NOTE | 2024-12-02 08:51 | W.PN.HOSP.TC ---
Addendum entered and electronically signed by Roopa Watson MD 12/02/24 15:00:
Seen and examined the patient with the resident. Agree with assessment plan set forth. Patient states that she is tolerating lunch. No abdominal pain. She also met with the dietitian and is feeling better.
Abdomen soft and nontender bowel sounds present
A note for travel was also given to the patient per her request
Continue with low residue diet
Blood pressure was slightly elevated therefore increased amlodipine to 10 mg daily
More than 30 minutes spent in discharge including
Final examination of the patient
Summarizing hospital stay
Instructions for continuing care to all relevant caregivers
Preparation of discharge records, prescriptions, and referral forms
Original Note:
Today's Communication/Plan
-
Patient tolerating low residue diet
Increase amlodipine to 10 mg daily
Medically stable for discharge
Assessment / Plan
Assessment / Plan
53-year-old female past medical history of hypertension, ovarian abscess status post total abdominal hysterectomy and bilateral salpingo-oophorectomy, prior appendectomy presenting with diffuse abdominal pain and bloating and distention since 11/27.
In the ED CT abdomen pelvis, and x-ray showed dilated loops concerning for SBO. General surgery was consulted who started her on conservative management with IV fluids antiemetics and analgesics. In the hospital and abdominal x-ray showed dilated
small bowels similar to the CT findings. A small bowel follow-through study showed a transit time of 1.5 hours which is within normal limits and findings consistent with resolving small bowel obstruction. Pain decreased over time and on 11/29
patient had a bowel movement and she was started on clear liquid diet on 11/30. Patient had another bowel movement on 11/30. On 12/01 patient was advanced to full liquid and then low residue tolerating it well. Patient received a disc recordist
consult who went over low residue diet with the patient, patient requested note for delay of planned travel which was given on 12/02. During this hospitalization patient was found to be hypertensive despite being on home antihypertensive, her
amlodipine was increased to 10 mg daily and encouraged to follow-up with outpatient PCP. At discharge BP 176/94 pulse 70 RR 18 temp 98 satting at 96%.
# Partial small bowel obstruction
# History of ovarian abscess status post total abdominal hysterectomy and BSO in the past
# History of appendectomy
Likely secondary to adhesion history of abdominal surgery
Patient still passing gas at presentation
SBO 5 years ago treated nonoperatively
CT abdomen pelvis shows small bowel obstruction with moderate distention of the jejunal small bowel loops obstructive adhesive band is probably etiology, mild mesenteric edema throughout the left side of the mid abdomen,
abdominal XRay Mild dilated proximal to mid small bowel, predominantly jejunum is grossly similar to findings seen on CT of preceding day, direct comparison of different imaging modalities somewhat limited.
Letter for delay of travel
- General Surgery consulted
appreciate recs
no surgical intervention immediately
SBO self resolving
Minimize narcotic use
Low residue
Advance diet as tolerated
- Zofran
- As needed Toradol
- Pantoprazole for GERD
- Pricing Actuary consult
# Hypertension
Resume home meds
- Increase to amlodipine 10 mg daily
-Losartan 100 mg
- Outpatient follow-up with PCP
CODE STATUS: Full code
DVT prophylaxis: Lovenox
Anticipated Discharge: Today
Subjective/Interval History
-
Saw patient this morning at bedside. She reported complete resolution of her abdominal pain still endorses mild bloating. She is passing gas and stooling and was able to tolerate low residue diet yesterday. She reports no fevers chills nausea
vomiting shortness of breath or chest pain. Counseled patient on low residue diet and progression to regular diet. Date of Service: December 02, 2024
Objective Data
-
Labs:
Laboratory Results
12/02/24
05:12
WBC 10.5
Hgb 14.6
Hct 50.0 H
Plt Count 376 D
Sodium 143
Potassium 4.1
Chloride 104
Carbon Dioxide 29
BUN 7
Creatinine 0.7
Glucose 92
Calcium 9.1
Vital Signs:
Vital Signs
Temp Pulse Resp BP Pulse Ox
98.7 F 70 18 176/94 96
12/02/24 07:15 12/02/24 07:15 12/02/24 07:15 12/02/24 07:15 12/02/24 07:15
I&O
12/01/24 12/02/24 12/03/24
06:59 06:59 06:59
Intake Total 1600 / 1600 990 / 990
Balance 1600 / 1600 990 / 990
Review of Systems
-
History Source: Patient
Constitutional: Reports No Symptoms; Denies Fever or Chills
EENT: Denies Sore Throat or Runny Nose
Respiratory: Denies Cough or Trouble Breathing
Cardiac: Denies Chest Pain or Palpitations
Abdomen/GI: Reports Abdominal Pain (Mild epigastric); Denies Nausea, Vomiting, Diarrhea or Constipated
Genitourinary: Denies Dysuria
Musculoskeletal: Reports No Symptoms
Skin: Reports No Symptoms
Neuro: Denies Headache
Physical Exam
-
General: Well Developed, Well Nourished, No Apparent Distress, Comfortable and Morbidly Obese; Negative Fever
HEENT: Normocephalic and Atraumatic
Respiratory: Clear to Auscultation and Non Labored Respirations; Negative Wheezes or Crackles
Cardiac: Regular Rhythm and S1/S2; Negative Murmur
GI: Soft, Nondistended, Normal Bowel Sounds and Tender (Mild epigastric tenderness)
Musculoskeletal: No Clubbing and No Edema
Skin: Warm and Dry; Negative Rash
Neuro: Awake, Alert and Oriented
--- NOTE | 2024-12-02 09:30 | W.PN.GS2 ---
Today's Communication / Plan
-
dispo planning
Assessment / Plan
-
53F with resolving SBO
AFVSS
Leukocytosis resolved
11/29 SBFT with 90 min transit to colon (WNL), with subsequent multiple loose bowel movements
tolerating dietary advancements
Plan:
Continue LRD
Ok for d/c from surgical standpoint
All other care as per primary team
Subjective Data
-
Date of Service: December 02, 2024
Pt seen and examined at bedside with Dr. Chavarria. Denies n/v. Tolerating diet. Passing flatus, bm's. Abdominal pain much improved/resolved.
Objective Data
-
Intake and Output
12/01/24 12/02/24 12/03/24
06:59 06:59 06:59
Intake Total 1600 / 1600 990 / 990
Balance 1600 / 1600 990 / 990
Intake:
Oral fluids 600 / 600 990 / 990
IV fluids (Total) 1000 / 1000
Other:
Number of approximated MODERATE 4 3
amounts of urine
Vital Signs
Temp Pulse Resp BP Pulse Ox
98.7 F 70 18 176/94 96
12/02/24 07:15 12/02/24 07:15 12/02/24 07:15 12/02/24 07:15 12/02/24 07:15
Lab Results
12/02/24 05:12
12/02/24 05:12
Calcium 9.1 mg/dl (8.4-10.2) 12/02/24 05:12
Total Bilirubin 0.6 mg/dl (0.2-1.3) 11/29/24 07:30
AST 19 U/L (14-36) 11/29/24 07:30
ALT 20 U/L (0-35) 11/29/24 07:30
Alkaline Phosphatase 80 U/L (38-126) 11/29/24 07:30
Total Protein 6.8 g/dl (6.3-8.2) 11/29/24 07:30
Albumin 3.5 g/dl (3.5-5.0) 11/29/24 07:30
Physical Exam
-
Gen: NAD
Abd: obese, soft, nt, nd
Patient has a ballesteros catheter: No
Patient has a central line: No
[2024-12-02 12:42] VITALS: BP 168/95
--- NOTE | 2024-12-02 13:27 | CM ---
CM following re: discharge planning.
Reviewed pt's chart, met with pt.
Per MD, Patient tolerating low residue diet, stable for discharge.
Pt is awre, expressed her agreement.
Pt was born and grew up in [place], emigrated to [place] [facility] [place] [facility] at the age of 16 for study. Pt reports her mother and father live in [place] and she visited them often. Pt reports she has no immediate family in the [place] [facility] [place] [facility], has supportive friends she can rely
on. 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
D/C plan: home no needs. Pt stated her friend will transport home or she will take an Uber
--- NOTE | 2024-12-02 14:22 | W.DCSUMMARY ---
Discharge Summary
Discharge Data
Date of Admission: 11/28/24
Date of Discharge: 12/02/24
-
Pending Results: No
Hospital Course
Discharging Physician :
Dr. Watson
Dr. Morales
Disposition :
Home
Primary care physician :
Dr. Delfino Tipton
Principal Discharge diagnosis :
Small bowel obstruction
Chronic Discharge diagnosis :
Small bowel obstruction
Hypertension
Obesity
Arthritis
Fatty liver
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
Hospital Course :
Ms De La Paz is a 53-year-old female past medical history of hypertension, ovarian abscess status post total abdominal hysterectomy and bilateral salpingo-oophorectomy, prior appendectomy presenting with diffuse abdominal pain and bloating and distention
since 11/27. In the ED CT abdomen pelvis, and x-ray showed dilated loops concerning for SBO. Also noted on the CT was some moderate degenerative disc disease. General surgery was consulted who started her on conservative management with IV fluids
antiemetics and analgesics. In the hospital and abdominal x-ray showed dilated small bowels similar to the CT findings. A small bowel follow-through study showed a transit time of 1.5 hours which is within normal limits and findings consistent
with resolving small bowel obstruction. Pain decreased over time and on 11/29 patient had a bowel movement and she was started on clear liquid diet on 11/30. Patient had another bowel movement on 11/30. On 12/01 patient was advanced to full
liquid and then low residue tolerating it well. Patient received a chief mate consult who went over low residue diet with the patient, patient requested note for delay of planned travel which was given on 12/02. During this hospitalization
patient was found to be hypertensive despite being on home antihypertensives, her amlodipine was increased to 10 mg daily and encouraged to follow-up with outpatient PCP. At discharge BP 168/95 pulse 70 RR 18 temp 98 satting at 96%.
Important imaging findings :
11/28/[address]:
IMPRESSION:
1. SMALL BOWEL OBSTRUCTION with moderate distention of jejunal small bowel loops and collapsed ileal small bowel loops with a transition point in the center of the abdomen. An obstructing adhesive band is the probable etiology for the small bowel
obstruction.
2. Mild mesenteric edema throughout the left side of the midabdomen.
3. Severe diffuse hepatic steatosis.
4. Previous ELLIS-BSO.
5. Morbid obesity.
6. 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
11/29/2024 abdominal x-ray:
IMPRESSION:
Mild proximal to mid small bowel dilatation grossly similar to CT of preceding day.
11/29/2024 small bowel series:
IMPRESSION: Findings most in keeping with resolving small bowel obstruction.
Procedure findings :
11/28/2024 ECG:
NORMAL SINUS RHYTHM
NORMAL ECG
Discharge Plan
-
Patient Disposition: Home (Routine Discharge)
Discharge Diagnosis/Procedures: Small bowel obstruction
Hypertension
Obesity
Arthritis
Fatty liver
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
Condition: Good
Diet: Low Fiber
Additional Diets: Low fiber for less than 2 weeks, then add fiber
Activity: As tolerated
Driving Restrictions: As prior to admission
Bathing Restrictions: None
Activity Restrictions/Additional Instructions:
Monitor blood pressure with your PCP.
Weight loss recommended
Follow-up with primary physician for follow-up of fatty liver
Referrals:
NONE,* [Family Provider, Internal Medicine]
Delfino Tipton DO, Resident [Family Practice Resident Year2, General] - in less than 1 week
Prescriptions:
New
amlodipine 10 mg Tablet
10 mg PO DAILY Qty: 30 0RF
Continued
losartan 100 mg Tablet
100 mg PO DAILY
Discontinued
amlodipine 5 mg Tablet
5 mg PO DAILY
Discharge Orders:
Discharge Patient (As Directed); Ordered 10/24/25
Ordered By: Roopa Watson
Discharge Date and Time
Print Language: BANGLADESHI
== END 2024-12-02 14:52 | disposition home or self-care (01) | DRG 389 ==
LOC: 2 NORTH 19:28
PROVIDERS: Emergency Medicine; Student in an Organized Health Care Education/Training Program; ADMITTING PHYSICIAN Hospitalist; ATTENDING PHYSICIAN Hospitalist; CONSULT PHYSICIAN Surgery; EMERGENCY PHYSICIAN Student in an Organized Health Care Education/Training Program
DX: K56.51 Intestinal adhesions [bands], with partial obstruction (principal); E87.1 Hypo-osmolality and hyponatremia; Z68.44 Body mass index [BMI] 60.0-69.9, adult; E66.01 Morbid (severe) obesity due to excess calories; I10 Essential (primary) hypertension
CPT/HCPCS: 74019; 74177; 74250; 80048; 80053; 82306; 83690; 85025; 85027; 93005; 96361; 96374; 99285; Q9967